=== PATIENT | female | born 1990 | race Caucasian/White ===

== ENCOUNTER 2019-01-02 03:23 | Emergency (ER) | payer OTHER ==
[~2019-01-02] VITALS: Ht 162.6 cm; Wt 59.0 kg
[2019-01-02 03:25] VITALS: BP 105/80
[2019-01-02 03:30] VITALS: BP 105/80
== END 2019-01-02 03:46 | disposition home or self-care (01) ==
LOC: MED 03:23
DX: H10.9 Unspecified conjunctivitis (principal)
CPT/HCPCS: 99283

== ENCOUNTER 2020-10-16 12:55 | Emergency (ER) | payer MEDICAID, OTHER ==
[~2020-10-16] VITALS: Ht 162.6 cm; Wt 61.7 kg
[2020-10-16 13:20] VITALS: BP 138/82
--- NOTE | 2020-10-16 13:22 | NUR ---
PT TO LOBBY.
--- NOTE | 2020-10-16 13:42 | NUR ---
30 Y/O FEMALE C/O VAGINAL BLEEDING X1DAY DENIES PAIN, PT STATES SHE IS 14 WEEKS [id number]. DENIES N/V, DENIES FEVER/CHILLS. DENIES PMH NKA
[2020-10-16] MEDS ORDERED: DOPPLER MC ONE (13:44)
--- NOTE | 2020-10-16 13:56 | NUR ---
HEART TONES AUSCULTATED IN TRIAGE 198BPM. MADE AWARE.
--- NOTE | 2020-10-16 14:05 | NUR ---
PT TO LOBBY.
[2020-10-16 14:59] LABS: APPEARANCE,URINE CLEAR (CLEAR); BILIRUBIN,URINE NEGATIVE (NEGATIVE); BLOOD, URINE 2+ (NEGATIVE); LEUKOCYTE ESTERASE ,URINE NEGATIVE (NEGATIVE); NITRITE, URINE NEGATIVE (NEGATIVE); UGLUCOSE NEGATIVE (NEGATIVE)
[2020-10-16 15:07] LABS: BASOPHILS % (AUTO) 0.2 % (0.0-2.0); EOSINOPHILS % (AUTO) 0.3 % (0.0-4.0); HEMATOCRIT 34.3 % (36-48); HEMOGLOBIN 11.9 g/dL (12.0-16.0); LYMPHOCYTES # (AUTO) 1.1 K/uL (2.5-16.5); LYMPHOCYTES % (AUTO) 11.3 % (20.5-51.1); MEAN CORPUSCULAR HEMOGLOBIN 29 pg (27-31); MEAN CORPUSCULAR HGB CONC 35 g/dL (33-37); MEAN CORPUSCULAR VOLUME 84.7 fL (80-94); MONOCYTES # (AUTO) 0.5 K/uL (0.8-1.0); MONOCYTES % (AUTO) 4.8 % (1.7-9.3); NEUTROPHILS # (AUTO) 8.3 K/uL (1.8-7.7); NEUTROPHILS % (AUTO) 83.4 % (42.2-75.2); PLATELET COUNT (AUTO) 188 K/uL (140-450); RED BLOOD CELL COUNT(AUTO) 4.05 MIL/uL (4.20-5.40); RED CELL DISTRIBUTION WIDTH 13.6 % (11.6-13.7); WHITE BLOOD COUNT (AUTO) 9.9 K/uL (4.8-10.8)
[2020-10-16 15:17] LABS: COLOR,URINE YELLOW (YELLOW); RBC,URINE 0-5 /HPF (0-5); WBC,URINE 0-5 /HPF (0-5)
--- NOTE | 2020-10-16 15:31 | NUR ---
PT ALERT AND AWAKE, BREATHING EVEN AND UNLABORED. NO DISTRESS NOTED. ALL NEEDS MET AT THIS TIME
[2020-10-16 16:49] VITALS: BP 138/82
--- NOTE | 2020-10-16 16:49 | NUR ---
Patient discharged with v/s stable. Written and verbal after care instructions about subchorionic hematoma given and explained. Patient verbalized understanding. Ambulatory with steady gait. All questions addressed prior to discharge. Advised to follow up with PMD.
== END 2020-10-16 16:49 | disposition home or self-care (01) ==
LOC: MED 12:55
DX: O20.0 Threatened abortion (principal); Z3A.13 13 weeks gestation of pregnancy
CPT/HCPCS: 36415; 76801; 81001; 81025; 84702; 85025; 86900; 86901; 99284